=== PATIENT | female | born 1945 | race Two or more races ===

== ENCOUNTER 2021-01-07 15:45 | Inpatient (IN) | payer OTHER ==
[~2021-01-07] VITALS: Ht 157.5 cm; Wt 70.3 kg
[2021-01-07] MEDS ORDERED: EPANED1 MG/1 M1 PO (16:08)
[2021-01-07] MEDS ORDERED: LEVOTHYROXINE25 MCG PO (16:08)
[2021-01-07] MEDS ORDERED: CLONAZEPAM1 M1 PO (16:09)
== END 2021-01-11 15:43 | disposition expired | DRG 177 ==
LOC: ER 15:45 → ICU-2 22:15 → ICU 01-08 18:15
PROVIDERS: ADMIT Internal Medicine; ATTEND Internal Medicine
PROC: 8E0ZXY6 Isolation (ICD-10-PCS; 2021-01-07)
PROC: 5A09457 Assistance with Respiratory Ventilation, 24-96 Consecutive Hours, Continuous Positive Airway Pressure (ICD-10-PCS; principal; 2021-01-08)
PROC: XW0DXM6 Introduction of Baricitinib into Mouth and Pharynx, External Approach, New Technology Group 6 (ICD-10-PCS; 2021-01-09)
PROC: 4A033R1 Measurement of Arterial Saturation, Peripheral, Percutaneous Approach (ICD-10-PCS; 2021-01-09)
DX: U07.1 COVID-19 (principal); J12.82 Pneumonia due to coronavirus disease 2019; J96.01 Acute respiratory failure with hypoxia; B37.0 Candidal stomatitis; I10 Essential (primary) hypertension; E11.65 Type 2 diabetes mellitus with hyperglycemia; I46.9 Cardiac arrest, cause unspecified